=== PATIENT | female | born 1960 | race Caucasian/White ===

== ENCOUNTER 2018-06-04 09:27 | Emergency (ER) | payer MEDICAID ==
[~2018-06-04] VITALS: Wt 61.9 kg
[2018-06-04] MEDS ORDERED: morphine 4 MG/ML VIAL IV STA (09:49)
[2018-06-04] MEDS ORDERED: SOD CHLORIDE 0.9% 1,000 ML IV STA (09:49)
[2018-06-04] MEDS ORDERED: ONDANSETRON 4 MG INJ IV STA (09:49)
[2018-06-04] MEDS ORDERED: CEFTRIAXONE 1 GM/50 ML (PMX) 50 ML IVPB ONE (11:00)
[2018-06-04] MEDS ORDERED: ACETAMINOPHEN 500 MG TAB PO STA (12:25)
[2018-06-04] MEDS ORDERED: LEVO750T8 PO (12:32)
[2018-06-04] MEDS ORDERED: IBUP800T48 PO (12:32)
[2018-06-04] MEDS ORDERED: ACET500C5 PO (12:32)
--- NOTE | 2018-06-04 13:01 | ERD ---
ER Documentation Chief Complaint Chief Complaint PRODUCTIVE COUGH X 3 DAYS WITH FEVER HPI 57-year-old female presenting with productive cough and fever times 3 days. Patient is also complaining of left foot sided flank pain. She has a history of . No other medical problems. NKDA. Has had a fever for the last 2 days and is wanting medication today. Denies other medical problems. NKDA. Surgical history denies. Social history denies ROS All systems reviewed and are negative except as per history of present illness. Medications Home Meds Active Scripts Acetaminophen* (Tylophen*) 500 Mg Capsule, 2 CAP PO Q8H PRN for PAIN AND OR ELEVATED TEMP, #20 CAP Prov:FATOUMATA WHITE PA-C 06/04/18 Ibuprofen* (Motrin*) 800 Mg Tab, 800 MG PO Q6, #30 TAB Prov:FATOUMATA WHITE PA-C 06/04/18 Levofloxacin* (Levofloxacin*) 750 Mg Tablet, 750 MG PO DAILY, #7 TAB Prov:FATOUMATA WHITE PA-C 06/04/18 Allergies Allergies: Coded Allergies: No Known Allergy (Unverified , 11/25/15) PMhx/Soc History of Surgery: No Anesthesia Reaction: No Hx Neurological Disorder: No Hx Respiratory Disorders: No Hx Cardiac Disorders: No Hx Psychiatric Problems: No Hx Miscellaneous Medical Probl: No Hx Alcohol Use: No Hx Substance Use: No Hx Tobacco Use: No Smoking Status: Never smoker FmHx Family History: No diabetes, No coronary disease, No other Physical Exam Vitals Vital Signs Date Temp Pulse Resp B/P (MAP) Pulse Ox O2 O2 Flow FiO2 Time Delivery Rate 06/04/18 100.9 12:41 06/04/18 102.6 108 22 142/71 96 09:29 (94) Physical Exam GENERAL: The patient is well-appearing, well-nourished, in no acute distress HEENT: Atraumatic. Conjunctivae are pink. Pupils equal, round, and reactive to light. There is no scleral icterus. Tympanic membranes clear bilaterally. Oropharynx clear. NECK: C-spine is soft and supple. There is no meningismus. There is no cervical lymphadenopathy. CHEST: Clear to auscultation bilaterally. There are no rales, wheezes or rhonchi. HEART: Regular rate and rhythm. No murmurs, clicks, rubs or gallops. No S3 or S4. ABDOMEN:Soft, nontender and nondistended. Good bowel sounds. No rebound or guarding. No gross peritonitis. No gross organomegaly or masses. BACK: No midline or flank tenderness. Some CVA tenderness noted of the left side. Result Diagram: 06/04/18 1011 06/04/18 1011 Results 24 hrs Laboratory Tests Test 06/04/18 10:11 06/04/18 11:30 White Blood Count 11.2 10^3/ul Red Blood Count 5.16 10^6/ul Hemoglobin 14.1 g/dl Hematocrit 41.9 % Mean Corpuscular Volume 81.2 fl Mean Corpuscular Hemoglobin 27.3 pg Mean Corpuscular Hemoglobin Concent 33.7 g/dl Red Cell Distribution Width 12.2 % Platelet Count 213 10^3/UL Mean Platelet Volume 9.1 fl Immature Granulocytes % 0.400 % Neutrophils % 79.7 % Lymphocytes % 13.6 % Monocytes % 5.6 % Eosinophils % 0.4 % Basophils % 0.3 % Nucleated Red Blood Cells % 0.0 /100WBC Immature Granulocytes # 0.040 10^3/ul Neutrophils # 8.9 10^3/ul Lymphocytes # 1.5 10^3/ul Monocytes # 0.6 10^3/ul Eosinophils # 0.1 10^3/ul Basophils # 0.0 10^3/ul Nucleated Red Blood Cells # 0.0 10^3/ul Urine Color YELLOW Urine Clarity SLIGHTLY CLOUDY Urine pH 5.0 Urine Specific Jackson 1.014 Urine Ketones 1+ mg/dL Urine Nitrite NEGATIVE mg/dL Urine Bilirubin NEGATIVE mg/dL Urine Urobilinogen NEGATIVE mg/dL Urine Leukocyte Esterase 2+ Melanie/ul Urine Microscopic RBC 10 /HPF Urine Microscopic WBC 41 /HPF Urine Squamous Epithelial Cells FEW /HPF Urine Bacteria FEW /HPF Urine Mucus FEW /HPF Urine Hemoglobin 1+ mg/dL Urine Glucose 3+ mg/dL Urine Total Protein 2+ mg/dl Sodium Level 136 mmol/L Potassium Level 3.9 mmol/L Chloride Level 101 mmol/L Carbon Dioxide Level 27 mmol/L Anion Gap 8 Blood Urea Nitrogen 10 mg/dl Creatinine 0.48 mg/dl Est Glomerular Filtrat Rate mL/min > 60 mL/min Glucose Level 280 mg/dl Calcium Level 8.9 mg/dl Total Bilirubin 0.9 mg/dl Direct Bilirubin 0.00 mg/dl Indirect Bilirubin 0.9 mg/dl Aspartate Amino Transf (AST/SGOT) 38 IU/L Alanine Aminotransferase (ALT/SGPT) 25 IU/L Alkaline Phosphatase 157 IU/L Total Protein 8.1 g/dl Albumin 4.0 g/dl Globulin 4.10 g/dl Albumin/Globulin Ratio 0.97 Lipase 83 U/L POC Venous Lactate 1.1 mmol/L Current Medications Medications Dose Sig/Geovanni Start Time Status Last (Trade) Ordered Route PRN Stop Time Admin Dose Reason Admin Sodium 1,000 ml @ Q1H STAT 06/04/18 DC 06/04/18 Chloride 1,000 mls/hr IV 09:49 10:34 06/04/18 10:48 Morphine 4 mg ONCE STAT 06/04/18 DC 06/04/18 Sulfate IV 09:49 10:35 (morphine) 06/04/18 09:51 Ondansetron 4 mg ONCE STAT 06/04/18 DC 06/04/18 HCl (Zofran IV 09:49 10:34 Inj) 06/04/18 09:51 Ceftriaxone 50 ml @ ONCE ONCE 06/04/18 DC 06/04/18 Sodium 100 mls/hr IVPB 11:00 10:57 06/04/18 11:29 1,000 mg ONCE STAT 06/04/18 DC 06/04/18 Acetaminophen PO 12:25 12:41 (Tylenol 06/04/18 12:26 Tab) Procedures/MDM DIAGNOSTIC IMAGING REPORT Patient: SHAJI MALONEY : 1960 Age: 57 Sex: F [id number] DOS: 06/04/18 0949 Ordering MD: DEANA WHITE PA-C Location: [facility] Room/Bed: PROCEDURE: CT ABDOMEN AND PELVIS WITHOUT CONTRAST. CLINICAL INDICATION: Left lower quadrant pain with fever and chills TECHNIQUE: CT scan of the abdomen and pelvis without contrast was performed on a multidetector high-resolution CT scanner. The patient was scanned without intravenous contrast. Coronal and sagittal reformatted images were obtained from the axial source images. Images were reviewed on a high-resolution PACS workstation. The total exam CTDI equals 11 mGy and the total exam DLP equals 594.7 mGy-cm. One or more of the following dose reduction techniques were used: Automated exposure control. Adjustment of the mA and/or kV according to patient size. Use of iterative reconstruction technique. DICOM images are available COMPARISON: None FINDINGS: CT abdomen: The lung bases are clear. The heart size is within normal limits. There is no significant pericardial effusion. Hepatic morphology is within normal limits. There is diffuse fatty infiltration of the liver. No gross contour deforming masses. The gallbladder is within normal limits. No evidence of intrahepatic or extrahepatic biliary dilatation. The spleen and pancreas are within normal limits. Both adrenal glands are within normal limits. Both kidneys are in normal anatomic position. No evidence of obstruction or hydronephrosis. No gross renal/ureteric calculi. The visualized GI tract demonstrate normal caliber loops of small and large bowel. No evidence of bowel obstruction. The appendix is within normal limits. The unenhanced aorta is unremarkable. No significant retroperitoneal lymphadenopathy. CT pelvis: The bladder is partially collapsed. There is thickening of the abreu. The uterus is unremarkable. Rectosigmoid colon demonstrates stool. No significant free fluid. No significant pelvic lymphadenopathy. The visualized osseous structures demonstrate mild degenerative changes of the spine. IMPRESSION: 1. No evidence of acute intra-abdominal/pelvic inflammatory process. No evidence of bowel obstruction. The appendix is within normal limits. 2. Stool filled loops of large bowel suggestive of constipation. 3. Thickening of the abreu of the bladder which is partially collapsed. Cannot exclude cystitis. Recommend correlation with urinalysis. 4. No evidence of free fluid or free air. No gross focal fluid collections. 5. Fatty liver. DIAGNOSTIC IMAGING REPORT Patient: SHAJI MALONEY : 1960 Age: 57 Sex: F MR #: [id number] DOS: 06/04/18 0949 Ordering MD: DEANA WHITE PA-C Location: [facility] Room/Bed: PROCEDURE: XR Chest. CLINICAL INDICATION: Chest pain TECHNIQUE: Single portable view of the chest was obtained COMPARISON: None FINDINGS: The heart and mediastinum are within normal limits. There are patchy bibasilar infiltrates. The lungs are otherwise clear. There is no pleural effusion or pneumothorax. RPTAT: AA IMPRESSION: Patchy bibasilar infiltrates. ER Course: 1 g Rocephin given ED. 1 L normal saline given. Urine culture and blood culture sent. Lactic acid normal at 1.1. Blood work within normal ranges. Case was discussed with Dr. Baeza prior to discharge MDM: 57 yr old female complaining fever. Influenza negative. I have low suspicion for sepsis. Patient does have findings consistent with urinary tract infection and pneumonia so we will treat with ofloxacin to cover for both infections. Patient received her Rocephin in the ER. I have low suspicion for other acute abdominal emergency. I have low suspicion for septic stone. Patient will be discharged with supportive medications and antibiotics. Patient is told symptoms change or worsen to return immediately to the ER. All other questions answered at discharge. Departure Diagnosis: Primary Impression: Pyelonephritis Additional Impression: Cough Condition: Stable Patient Instructions: Pyelonephritis, Female (Adult) Referrals: [facility] YOU HAVE RECEIVED A MEDICAL SCREENING EXAM AND THE RESULTS INDICATE THAT YOU DO NOT HAVE A CONDITION THAT REQUIRES URGENT TREATMENT IN THE EMERGENCY DEPARTMENT. FURTHER EVALUATION AND TREATMENT OF YOUR CONDITION CAN WAIT UNTIL YOU ARE SEEN IN YOUR DOCTORS OFFICE WITHIN THE NEXT 1-2 DAYS. IT IS YOUR RESPONSIBILITY TO MAKE AN APPOINTMENT FOR FOLOW-UP CARE. IF YOU HAVE A PRIMARY DOCTOR --you should call your primary doctor and schedule an appointment IF YOU DO NOT HAVE A PRIMARY DOCTOR YOU CAN CALL OUR PHYSICIAN REFERRAL HOTLINE AT IF YOU CAN NOT AFFORD TO SEE A PHYSICIAN YOU CAN CHOSE FROM THE FOLLOW[facility] [address] [facility]. [facility] [address] [facility]. [facility] [address] [facility] [address] [facility] [address] [facility]. [facility]. [address] Additional Instructions: FOLLOW UP WITH YOUR PRIMARY CARE PHYSICIAN TOMORROW.Return to this facility if you are not improving as expected. FATOUMATA WHITE PA-C Jun 04, 2018 13:01
[2018-06-04 13:04] VITALS: BP 114/56; PULSE 107; RESP 18
== END 2018-06-04 13:06 | disposition home or self-care (01) ==
LOC: FTE 09:27
DX: N12 Tubulo-interstitial nephritis, not specified as acute or chronic (principal); R07.9 Chest pain, unspecified
CPT/HCPCS: 36415; 71045; 74176; 80053; 81001; 83605; 83690; 85025; 87040; 87086; 87400; 96365; 96366; 96375; J0696; J2270; J2405; J7030; Z7502; Z7610